=== PATIENT | female | born 1965 | race Caucasian/White ===

== ENCOUNTER → 2025-02-08 13:39 | Outpatient (BNVA) | payer SELFPAY | PROVIDERS: Visit Provider Physician Assistant | DX: S83.92XA Sprain of unspecified site of left knee, initial encounter (principal); W01.0XXA Fall on same level from slipping, tripping and stumbling without subsequent striking against object, initial encounter | CPT/HCPCS: 73564; 99204 ==

== ENCOUNTER → 2025-02-14 14:49 | Outpatient (BNVA) | payer OTHER, SELFPAY | PROVIDERS: Visit Provider Physician Assistant | DX: S83.92XA Sprain of unspecified site of left knee, initial encounter (principal); W01.0XXA Fall on same level from slipping, tripping and stumbling without subsequent striking against object, initial encounter | CPT/HCPCS: 99213 ==

== ENCOUNTER → 2025-02-28 15:41 | Outpatient (BNVA) | payer OTHER, SELFPAY | PROVIDERS: Visit Provider Physician Assistant | DX: S83.92XA Sprain of unspecified site of left knee, initial encounter (principal); X50.1XXA Overexertion from prolonged static or awkward postures, initial encounter; Z02.79 Encounter for issue of other medical certificate | CPT/HCPCS: 99213 ==

== ENCOUNTER 2025-03-20 18:38 | Outpatient (REF) | payer OTHER, SELFPAY ==
--- NOTE | ~2025-03-20 | MR_ITS ---
EXAMINATION: MR KNEE WITHOUT CONTRAST, LEFT CLINICAL INFORMATION: Pain, meniscal tear. COMPARISON: X-ray 02/08/2025 TECHNIQUE: MRI of the knee without contrast was performed using routine sequences on a high-field scanner. FINDINGS: MENISCI: Medial Meniscus: Horizontal/undersurface tear in the body of the posterior horn/body junction. Lateral Meniscus: Degenerative fraying of the posterior root. LIGAMENTS: Cruciate: Increased T2 signal in the PCL with thickening of the ligament, suggestive of mucoid degeneration plus/minus sprain/partial tear. ACL is intact.. Collateral: Intact EXTENSOR MECHANISM: Intact ARTICULAR CARTILAGE/BONE: Patellofemoral Compartment: Mild arthritis Medial Compartment: Mild arthritis Lateral Compartment: Minimal arthritis No acute fracture. No aggressive marrow replacing lesion.. JOINT FLUID AND BURSAE: Small effusion. Scattered intermediate/low signal foci in the joint space, from synovitis/debris/loose bodies. No significant Angelo's cyst. MR/MR knee LT wo con IMPRESSION: 1. Tear of the medial meniscal body and posterior horn/body junction 2. Posterior root degenerative fraying of the lateral meniscus. 3. Posterior cruciate ligament findings suggestive of mucoid degeneration plus/minus sprain/partial tear. 4. Mild tricompartment arthritis 5. Small effusion. Mild synovitis/debris/loose bodies. Electronically signed by: Andrea Bhatt MD 03/21/2025 07:50 AM EST
--- OUTSIDE RECORDS SUMMARY | 2025-03-21 05:13 | XMS_ITS ---
[facility] Organization [facility] Care Team Organization Name Specialty Phone Email Start Date End Da te [facility] DO Primary Care 02/02/202311/30 [facility]/09/20[facility]
== END 2025-03-20 18:39 | disposition home or self-care (01) ==
LOC: HO.MRI 18:38
PROVIDERS: PCP Family Medicine; Visit Provider Internal Medicine
DX: M25.562 Pain in left knee (principal)
CPT/HCPCS: 73721

== ENCOUNTER → 2025-03-20 18:38 | Outpatient (BNV) | payer OTHER, SELFPAY | PROVIDERS: PCP Family Medicine; Visit Provider Radiology Diagnostic Ultrasound | DX: S83.242A Other tear of medial meniscus, current injury, left knee, initial encounter (principal); M17.12 Unilateral primary osteoarthritis, left knee; M25.462 Effusion, left knee | CPT/HCPCS: 73721 ==